=== PATIENT | female | born 1955 | race African-American/Black ===

== ENCOUNTER 2022-11-25 06:29 | Inpatient (IN) | payer MEDICARE, MEDICAID ==
[~2022-11-25] VITALS: Ht 165.1 cm; Wt 108.0 kg
[2022-11-25] MEDS ORDERED: BUPIVACAINE HCL/PF 0.5% (5MG/ML) 10ML ONE (07:09)
[2022-11-25] MEDS ORDERED: SKIN ADHESIVE 0.7 GM EA TOP ONE (07:09)
[2022-11-25] MEDS ORDERED: LOSA50TA41 MT (09:56)
[2022-11-25] MEDS ORDERED: OMEP40CA20 MT (09:56)
[2022-11-25] MEDS ORDERED: SUCCINYLCHOLINE CHLORIDE 200MG/10ML IV ONE (10:08)
[2022-11-25] MEDS ORDERED: CEFAZOLIN SODIUM 1000MG/VIAL ONE (10:08)
[2022-11-25] MEDS ORDERED: MIDAZOLAM HCL 2 MG/2 ML VIAL ONE (10:09)
[2022-11-25] MEDS ORDERED: FENTANYL CITRATE/PF 50MCG/ML 2ML VIAL ONE (10:09)
[2022-11-25] MEDS ORDERED: NEOSTIGMINE METHYLSULFATE 1MG/ML 10 ML VIAL ONE (10:26)
[2022-11-25] MEDS ORDERED: DEXAMETHASONE 4MG/ML 1ML VIAL ONE (10:26)
[2022-11-25] MEDS ORDERED: GLYCOPYRROLATE 0.2 MG/ML 2ML VIAL ONE ×2 (10:27)
[2022-11-25] MEDS ORDERED: HYDROMORPHONE HCL/PF 2MG/ML CPJ ONE (10:27)
[2022-11-25] MEDS ORDERED: ONDANSETRON HCL 4MG/2ML INJ IV PRN ×2 (10:30→11:00)
[2022-11-25] MEDS ORDERED: METRONIDAZOLE 500 MG PREMIX 100 ML IV ONE (10:36)
[2022-11-25] MEDS ORDERED: LABETALOL 5MG/ML SYR 20 MG/4 ML SYRINGE IV PRN (11:00)
[2022-11-25] MEDS ORDERED: MEPERIDINE HCL/PF 25MG/ML CPJ IV PRN (11:00)
[2022-11-25] MEDS ORDERED: BUPIVACAINE HCL 0.5% 290 ML in ON-Q PM015 DRUG DELIV DEVICE 1 EA IR NR (11:23)
[2022-11-25] MEDS: HYDROMORPHONE HCL/PF 2MG/ML CPJ IV PRN ×2 (12:18→12:23)
[2022-11-25] MEDS ORDERED: NALOXONE HCL 0.4MG/ML VIAL IV PRN (14:00)
[2022-11-25] MEDS: DEXT 5%/0.45% NACL KCL 20MEQ/L 1,000 ML IV SCH ×2 (17:00→20:02)
[2022-11-25 19:00] VITALS: BP 132/72
[2022-11-25] MEDS: MORPHINE SULFATE 2 MG/ML CPJ (NOT FOR IM USE) IV PRN (19:57)
[2022-11-25] MEDS: CEFOXITIN SODIUM 2 G in DEXT 5% WATER 100 ML IV SCH (19:58)
[2022-11-25 20:00] VITALS: BP 132/72
[2022-11-25] MEDS ORDERED: FAMOTIDINE 20MG/2ML VIAL IV SCH (21:00)
[2022-11-26] VITALS: BP 130/79
[2022-11-26] MEDS: MORPHINE SULFATE 4 MG/ML CPJ (NOT FOR IM USE) IV PRN ×3 (00:05→20:17)
[2022-11-26 04:00] VITALS: BP 139/70
[2022-11-26] MEDS: DEXT 5%/0.45% NACL KCL 20MEQ/L 1,000 ML IV SCH (06:12)
[2022-11-26] MEDS: CEFOXITIN SODIUM 2 G in DEXT 5% WATER 100 ML IV SCH (06:12)
[2022-11-26] MEDS: MORPHINE SULFATE 2 MG/ML CPJ (NOT FOR IM USE) IV PRN ×4 (07:08→23:48)
[2022-11-26 07:09] LABS: HEMATOCRIT. 39.2 % (36.0-48.0); HEMOGLOBIN. 12.6 g/dL (12.0-16.0); MEAN CORPUSCULAR HEMOGLOBIN 27.1 pg (28.0-32.0); MEAN CORPUSCULAR VOLUME 84.5 fL (81.0-99.0); MEAN PLATELET VOLUME 8.2 fl (7.4-10.4); PLATELET 331 x1000/uL (130-400); RED BLOOD CELL COUNT 4.64 mill/uL (4.2-5.4); RED CELL DISTRIBUTION WIDTH 14.6 % (11.6-14.6)
[2022-11-26 07:48] LABS: CHLORIDE 106 mEq/L (98-107)
[2022-11-26 08:00] VITALS: BP 129/63
[2022-11-26 12:00] VITALS: BP 129/85
[2022-11-26] MEDS: FAMOTIDINE 20MG/2ML VIAL IV SCH ×2 (12:08→21:14)
[2022-11-26 16:00] VITALS: BP 146/82
[2022-11-26 18:19] LABS: PLATELET ESTIMATE NORMAL
[2022-11-26 20:00] VITALS: BP 155/71
[2022-11-27] VITALS: BP 132/66
[2022-11-27 08:00] VITALS: BP 133/51
[2022-11-27] MEDS: MORPHINE SULFATE 2 MG/ML CPJ (NOT FOR IM USE) IV PRN ×3 (08:33→18:18)
[2022-11-27] MEDS: FAMOTIDINE 20MG/2ML VIAL IV SCH (08:37)
[2022-11-27] MEDS ORDERED: LOSARTAN POTASSIUM 50 MG TABLET PO SCH (11:30)
[2022-11-27 12:00] VITALS: BP 141/67
[2022-11-27 16:00] VITALS: BP 143/68
[2022-11-27 18:45] VITALS: BP 143/68
[2022-11-27] MEDS ORDERED: FAMOTIDINE 20MG TABLET PO SCH (21:00)
== END 2022-11-27 22:10 | disposition home or self-care (01) | DRG 331 ==
LOC: OR 06:29 → 6EST 18:04
PROVIDERS: ADMIT Surgery; ATTEND Surgery
PROC: 0DTF0ZZ Resection of Right Large Intestine, Open Approach (ICD-10-PCS; principal; 2022-11-25)
DX: D37.4 Neoplasm of uncertain behavior of colon (principal); K66.0 Peritoneal adhesions (postprocedural) (postinfection); D36.7 Benign neoplasm of other specified sites; Z20.822 Contact with and (suspected) exposure to COVID-19
CPT/HCPCS: 36415; 80048; 85025; 87426; 88307; C9803; J0330; J0690; J0694; J1100; J1170; J2250; J2270; J2405; J2710; J3010; J3490; J7030; J7060